=== PATIENT | female | born 1995 | race Caucasian/White ===

== ENCOUNTER → 2017-07-03 | Outpatient (CLI) | payer OTHER ==
[~2017-07-03] MED LIST: GADAVIST IV PRN
--- NOTE | 2017-07-03 08:08 | DIAGNOSTIC IMAGING REPORT ---
MRI OF THE BRAIN COMBO CLINICAL HISTORY: Headache. Weakness. Blurred vision. COMPARISON STUDY: No priors. TECHNIQUE: MRI of the brain was performed utilizing various T1 and T2-weighted sequences in the axial, sagittal, and coronal planes. Contrast-enhanced sequences were acquired following the administration of 5.5 cc of Gadavist. FINDINGS: Brain parenchyma: The brain parenchyma is normal in appearance. There is no hemorrhage or mass effect. There is no restricted diffusion to suggest acute ischemia. No enhancing mass lesion is identified on the postcontrast images. Valle-white matter differentiation is preserved. No extra-axial fluid collection is seen. The cerebellar tonsils are normal in configuration. Ventricles, sulci, and cisterns: Normal in configuration. Pituitary and sella: Unremarkable. Intracranial vasculature: Normal flow voids are maintained at the skull base. Orbits: The bony orbits are grossly intact. Orbital contents are normal in appearance. Sinuses and mastoids: Trace mucosal thickening is seen in the maxillary antra, the right sphenoid sinus, and ethmoid sinuses. The mastoid air cells are clear. Calvarium: Unremarkable. Cervical cord: Partially visualized cervical spinal cord is normal in morphology and signal intensity. IMPRESSION: No acute intracranial abnormality. Electronically signed by: Milind Turcios M.D. 07/03/2017 8:07 AM Dictated Date/Time: 07/03/2017 8:04 AM
--- NOTE | 2017-07-03 08:13 | DIAGNOSTIC IMAGING REPORT ---
CERVICAL SPINE COMBO HISTORY: 22 years-old Female HEADACH acute headache with blurred vision and confusion COMPARISON: MRI brain of same day TECHNIQUE: Multiplanar multisequence MRI of the cervical spine was obtained both with and without the use of 5.5 mL Gadavist FINDINGS: Large [id number] mortician investigator localizer images demonstrate no gross abnormality of the head, neck or imaged upper chest. Signal within the cord is within normal limits. Imaged posterior fossa is unremarkable. No acute fracture, subluxation or focal bone marrow edema. Imaged soft tissues are unremarkable. There is no abnormal enhancement. C2-C3: No central canal or foraminal narrowing. C3-C4: No central canal or foraminal narrowing. C4-C5: No central canal or foraminal narrowing. C5-C6: No central canal or foraminal narrowing. C6-C7: Broad-based disc bulge is noted in addition to a central disc protrusion which measures 0.2 x 0.5 cm in AP and transverse dimension flattening of ventral thecal sac. Central canal and foramen demonstrate no significant narrowing. C7-T1: No central canal or foraminal narrowing. Imaged upper cervical levels are unremarkable. IMPRESSION: 1. Broad-based disc bulge with central disc protrusion at C6-C7 flattens the ventral thecal sac without significant central canal or foraminal narrowing. 2. No additional discogenic degenerative changes identified. No focal bone marrow edema. 3. No abnormal enhancement. The above report was generated using voice recognition software. It may contain grammatical, syntax or spelling errors. Electronically signed by: Dani Joseph M.D. 07/03/2017 8:12 AM Dictated Date/Time: 07/03/2017 8:05 AM
--- NOTE | 2017-07-03 09:08 | DIAGNOSTIC IMAGING REPORT ---
SOFT TISS HEAD/NECK-THYROID CLINICAL HISTORY: 22 years-old Female presenting with CERVICAL LYMPHADENOPATHY, headache, blurred vision, confusion. TECHNIQUE: Real-time grayscale and color Doppler ultrasound imaging of the neck was performed. COMPARISON: None. FINDINGS: Prominent ovoid lymph node in the right cervical region maintaining a normal fatty hilum. This node measures 2.5 x 2.0 x 1.0 cm. Additional similar-appearing but smaller lymph nodes also noted. Similarly, a prominent ovoid lymph node in the left cervical region imaging and normal fatty hilum noted. This node measures 2.0 x 1.8 x 0.8 cm. IMPRESSION: Prominent but benign-appearing cervical lymph nodes bilaterally, which are likely reactive. If there is clinical concern, follow-up ultrasound could be obtained in one month to ensure resolution. Electronically signed by: Naun Marcelo M.D. 07/03/2017 9:07 AM Dictated Date/Time: 07/03/2017 9:05 AM
== END | disposition home or self-care (01) ==
LOC: C.MRI 05:59
PROVIDERS: ATTEND Student in an Organized Health Care Education/Training Program
DX: R51 Headache (principal); G81.90 Hemiplegia, unspecified affecting unspecified side; R20.2 Paresthesia of skin; R41.0 Disorientation, unspecified; H53.8 Other visual disturbances; R59.0 Localized enlarged lymph nodes; M50.20 Other cervical disc displacement, unspecified cervical region

== ENCOUNTER → 2017-10-27 | Outpatient (CLI) | payer OTHER | END | disposition home or self-care (01) | LOC: C.LAB 02:01 | DX: Z02.83 Encounter for blood-alcohol and blood-drug test (principal) ==

== ENCOUNTER 2020-03-04 12:42 | Inpatient (IN) ==
[2020-03-04] MEDS ORDERED: LACTATED RINGER'S 1,000 ML IV PRN (13:29)
[2020-03-04] MEDS ORDERED: OXYTOCIN 30 UNITS/500 ML BAG IV PRN ×3 (13:29→19:21)
--- NOTE | 2020-03-04 13:36 | History & Physical Report ---
Date of Service March 04, 2020 Assessment & Plan (1) Supervision of normal intrauterine in primigravida: - tracing Cat II, moderate variability with accles - active labor - desires epidural - anticipates History of Present Illness Chief Complaint: Labor check Primary Care Provider: Mindi Hatfield MD The patient is a 24-year-old 1 para 0 with an EDC of 08 March by first trimester ultrasound who was admitted at 39+ weeks gestational age in active labor. The patient has been having prodromal contractions for the last several days. She was discharged yesterday afternoon for labor check and was 4 cm dilated. Patient states that approximately 0900 hrs. this morning her contractions increased in intensity. Patient denies rupture of membranes or vaginal bleeding. The patient has had an benign course. Her blood type is O-, antibody negative, she received RhoGam on 15 December, hep B negative, rubella immune, negative SMA and cystic fibrosis screening, negative cell free DNA screening, normal 1 hour Glucola at 16 weeks, elevated at 28 weeks with a normal 2-hour glucose tolerance test, and a negative third trimester beta strep culture. Allergies Allergy/AdvReac Type Severity Reaction Status Date / Time prochlorperazine Allergy Intermediate Anxiety Verified 03/02/20 13:41 [From Compazine] Sulfa (Sulfonamide Allergy Mild HIVES Verified 03/02/20 13:41 Antibiotics) sulfamethoxazole Allergy Unknown Verified 03/02/20 13:41 [From Bactrim] trimethoprim [From Bactrim] Allergy Unknown Verified 03/02/20 13:41 YELLOW NO 5 Allergy Intermediate HIVES Uncoded 03/02/20 13:41 Home Medications Home Medications Medication Instructions Recorded Confirmed Type prenat.vits,brian,[id number] 1 tab PO DAILY 07/23/19 03/04/20 History Patient History Medical History (Updated 02/20/20 @ 10:48 by Blu Plaza Jr, MD, FACOG) Abnormal menses (Resolved) Acne (Acute) Acute sinus infection (Resolved) Anxiety (Acute) Chronic constipation (Acute) Chronic reflux esophagitis (Acute) Constipation (Resolved) Encounter for pre-employment examination (Inactive) History of headache Hx of varicella Menorrhagia (Resolved) Polycystic ovarian syndrome Postnasal drip (Acute) Xerosis cutis Surgical History History of cholecystectomy (Resolved) S/P cholecystectomy S/P excision of lipoma S/P wisdom tooth extraction Social History Preferred Language: German Communication Ability: Effective Customer Service Administrator Required: No Beliefs That Will Affect Care: None marital status: Single marital status details: FOB: Alexys Kam (44) [phone] Current Living Situation: Significant Other Current Living Situation Comment: Pt lives with boyfriend and dog. 2 stepchildren visit the home. current occupational status: employed current occupation: landscaping- laid off Other Information That Helps Us Care for You: No Feels Safe at Home: Yes Safety Concerns: Feels Safe At This Time Smoking Status: Former smoker Smoking End Date: 05/2019 ; Second Hand Exposure: No ; Tobacco Cessation Education Requested by Patient: No Hx Alcohol Use: No Hx Substance Use: No Childhood Exposure to Second-Hand Smoke: Yes Dental Care, Regularly: Yes Physical Activity Frequency: 5-6 Times per Week Physical Exam Constitutional: WD/WN, vitals as above Respiratory: Auscultation: lungs clear to auscultation bilaterally Cardiovascular: RRR, no murmur, no edema Extremities: no calf tenderness Gastrointestinal (Abdomen): Gravid, Vtx, (+) FHT's, EFW 7 1/2 lbs Genitourinary: Cervix: 6/100/(+)1 Results & Data ([facility]) Vital Signs (Past 12 Hours) Vital Signs Temp Pulse Resp BP 03/04/20 13:07 98.1 F 75 20 127/79 03/04/20 13:01 75 127/79 03/04/20 12:59 98.1 F 20 Coding Level of Care Code None Diagnoses Supervision of normal intrauterine in primigravida Z34.00
[2020-03-04 13:50] LABS: Hematocrit (blood only) 40.8 % (37-47); Hemoglobin 13.8 g/dL (12.0-16.0); Mean Corpuscular Hemoglobin 29.5 pg (25-34); Mean Corpuscular Volume 87.2 fL (80-100); Platelet Count 270 K/uL (130-400); RDW Coefficient of Variation 14.2 % (11.5-14.5); RDW Standard Deviation 44.7 fL (36.4-46.3); Red Blood Count 4.68 M/uL (4.2-5.4)
[2020-03-04 13:55] LABS: Mean Corpuscular Hgb Conc 33.8 g/dL (32-36)
[2020-03-04] MEDS ORDERED: ePHEDrine sulfate 50 MG/ML AMP ONE (14:07)
[2020-03-04] MEDS ORDERED: fentaNYL citrate 100 MCG/2 ML VIAL ONE (14:07)
[2020-03-04] MEDS ORDERED: BUPIVACAINE 0.25% 30 ML VIAL ONE (14:07)
[2020-03-04] MEDS ORDERED: fentaNYL 2MCG/ML ROPIV 1.25MG/ML 100 ML BAG EPI ONE (14:08)
--- NOTE | 2020-03-04 14:36 | Anesthesiology Consultation ---
Date of Service March 04, 2020 Assessment & Plan Chart Review Chart Review: Acceptable Risk for Labor Epidural Consults Requested none History Height/Weight Height: 5 ft 5 in Weight: 82.554 kg Allergies Allergy/AdvReac Type Severity Reaction Status Date / Time prochlorperazine Allergy Intermediate Anxiety Verified 03/02/20 13:41 [From Compazine] Sulfa (Sulfonamide Allergy Mild HIVES Verified 03/02/20 13:41 Antibiotics) sulfamethoxazole Allergy Unknown Verified 03/02/20 13:41 [From Bactrim] trimethoprim [From Bactrim] Allergy Unknown Verified 03/02/20 13:41 YELLOW NO 5 Allergy Intermediate HIVES Uncoded 03/02/20 13:41 Medications Home Medications Medication Instructions Recorded Confirmed Last Taken prenat.vits,brian,[id number] 1 tab PO DAILY 07/23/19 03/04/20 03/03/20 22:00 Past Medical History Medical History Abnormal menses (Resolved) Acne (Acute) Acute sinus infection (Resolved) Anxiety (Acute) Chronic constipation (Acute) Chronic reflux esophagitis (Acute) Constipation (Resolved) Encounter for pre-employment examination (Inactive) History of headache Hx of varicella Menorrhagia (Resolved) Polycystic ovarian syndrome Postnasal drip (Acute) Xerosis cutis Past Family History Family History Father Hypercholesterolemia Mother Thyroid disorder Diabetes Denies family history of Ovarian cancer Breast cancer Colorectal cancer Past Surgical History Surgical History History of cholecystectomy (Resolved) S/P cholecystectomy S/P excision of lipoma S/P wisdom tooth extraction Social History Smoking Status: Former smoker Smoking End Date: 05/2019 Hx Alcohol Use: No Hx Substance Use: No substance use type: does not use Physical Exam Vital Signs Last Vital Signs Temp 36.7 C 03/04/20 13:07 Pulse 103 H 03/04/20 14:34 Resp 20 03/04/20 13:07 BP 104/59 L 03/04/20 14:34 Pulse Ox 95 03/04/20 14:34 Testing Laboratory Results 03/04/20 13:38
[2020-03-04] MEDS ORDERED: ePHEDrine sulfate 50 MG/ML AMP IV PRN (14:39)
[2020-03-04] MEDS ORDERED: NALOXONE HCL 1 MG in SODIUM CHLORIDE 0.9% 1000ML 1,000 ML IV PRN (14:39)
[2020-03-04] MEDS ORDERED: NALOXONE HCL 0.4 MG/1 ML VIAL/CARP IV PRN (14:39)
[2020-03-04] MEDS ORDERED: fentaNYL 2MCG/ML ROPIV 1.25MG/ML 100 ML BAG EPI PRN (14:39)
[2020-03-04] MEDS ORDERED: DiphenhydrAMINE HCL 50 MG/ML VIAL IV PRN (14:39)
--- NOTE | 2020-03-04 14:39 | Anesthesiology Consultation ---
Date of Service March 04, 2020 History Height/Weight Height: 5 ft 5 in Weight: 82.554 kg Allergies Allergy/AdvReac Type Severity Reaction Status Date / Time prochlorperazine Allergy Intermediate Anxiety Verified 03/02/20 13:41 [From Compazine] Sulfa (Sulfonamide Allergy Mild HIVES Verified 03/02/20 13:41 Antibiotics) sulfamethoxazole Allergy Unknown Verified 03/02/20 13:41 [From Bactrim] trimethoprim [From Bactrim] Allergy Unknown Verified 03/02/20 13:41 YELLOW NO 5 Allergy Intermediate HIVES Uncoded 03/02/20 13:41 Medications Home Medications Medication Instructions Recorded Confirmed Last Taken prenat.vits,brian,[id number] 1 tab PO DAILY 07/23/19 03/04/20 03/03/20 22:00 Past Medical History Medical History Abnormal menses (Resolved) Acne (Acute) Acute sinus infection (Resolved) Anxiety (Acute) Chronic constipation (Acute) Chronic reflux esophagitis (Acute) Constipation (Resolved) Encounter for pre-employment examination (Inactive) History of headache Hx of varicella Menorrhagia (Resolved) Polycystic ovarian syndrome Postnasal drip (Acute) Xerosis cutis Past Family History Family History Father Hypercholesterolemia Mother Thyroid disorder Diabetes Denies family history of Ovarian cancer Breast cancer Colorectal cancer Past Surgical History Surgical History History of cholecystectomy (Resolved) S/P cholecystectomy S/P excision of lipoma S/P wisdom tooth extraction Social History Smoking Status: Former smoker Smoking End Date: 05/2019 Hx Alcohol Use: No Hx Substance Use: No substance use type: does not use Physical Exam Vital Signs Last Vital Signs Temp 36.7 C 03/04/20 13:07 Pulse 91 H 03/04/20 14:36 Resp 20 03/04/20 13:07 BP 103/57 L 03/04/20 14:36 Pulse Ox 95 03/04/20 14:34 Testing Laboratory Results 03/04/20 13:38
--- NOTE | 2020-03-04 15:14 | Labor Progress Brief Note ---
Date of Service March 04, 2020 Subjective Reason For Note: Routine Evaluation Assessment & Plan (1) Supervision of normal intrauterine in primigravida: - tracing Cat II, variability and accels - comfortable with epidural - ctx's spaced out after epidural - pitocin augmentation Admission and Anticipated Discharge Date Admission Date: March 04, 2020 Physical Exam Genitourinary: Cervix: 6/100/(+)1, AROM clear Results & Data ([facility]) Vital Signs (Past 12 Hours) Vital Signs Temp Pulse Resp BP Pulse Ox 03/04/20 15:09 59 L 97 03/04/20 15:07 80 93/57 L 03/04/20 15:04 90 92 03/04/20 14:59 95 H 99 03/04/20 14:54 98 H 96 03/04/20 14:50 84 94 03/04/20 14:49 91 H 95 03/04/20 14:48 85 98/55 L 03/04/20 14:46 96 H 102/57 L 03/04/20 14:44 90 100/57 L 93 03/04/20 14:42 101 H 99/57 L 03/04/20 14:40 96 H 100/57 L 03/04/20 14:39 91 H 94 03/04/20 14:38 101 H 98/57 L 03/04/20 14:36 91 H 103/57 L 03/04/20 14:34 103 H 104/59 L 95 03/04/20 14:32 85 108/58 L 03/04/20 14:30 98 H 114/57 L 03/04/20 14:29 91 H 96 03/04/20 14:27 81 125/68 03/04/20 14:26 87 93 03/04/20 14:24 81 98 03/04/20 14:21 95 H 93 03/04/20 14:19 103 H 99 03/04/20 14:15 88 90 03/04/20 14:14 72 136/76 97 03/04/20 13:07 98.1 F 75 20 127/79 03/04/20 13:01 75 127/79 03/04/20 12:59 98.1 F 20 Coding Level of Care Code None Diagnoses Supervision of normal intrauterine in primigravida Z34.00
--- NOTE | 2020-03-04 18:19 | Labor Progress Brief Note ---
Date of Service March 04, 2020 Subjective Reason For Note: Routine Evaluation Assessment & Plan (1) Supervision of normal intrauterine in primigravida: - tracing Cat II, moderate accels and variability - begin 2nd stage Admission and Anticipated Discharge Date Admission Date: March 04, 2020 Physical Exam Genitourinary: Cervix: Complete: (+)2 Results & Data ([facility]) Vital Signs (Past 12 Hours) Vital Signs Temp Pulse Resp BP Pulse Ox 03/04/20 18:14 120 H 100 03/04/20 18:09 89 100 03/04/20 18:04 86 100 03/04/20 18:00 98 H 89 L 03/04/20 17:59 88 100 03/04/20 17:54 89 100 03/04/20 17:50 89 108/63 03/04/20 17:49 92 H 97 03/04/20 17:44 85 100 03/04/20 17:39 83 99 03/04/20 17:35 82 100/56 L 03/04/20 17:34 81 96 03/04/20 17:31 92 H 94 03/04/20 17:29 81 20 95 03/04/20 17:26 85 94 03/04/20 17:24 84 95 03/04/20 17:20 86 102/52 L 03/04/20 17:19 86 93 03/04/20 17:14 91 H 98 03/04/20 17:09 73 97 03/04/20 17:04 80 96/55 L 97 03/04/20 17:03 87 94 03/04/20 17:01 98.4 F 03/04/20 16:59 75 20 98 03/04/20 16:58 74 93 03/04/20 16:54 74 97 03/04/20 16:50 80 95/54 L 92 03/04/20 16:49 77 97 03/04/20 16:44 82 98 03/04/20 16:39 80 98 03/04/20 16:34 80 101/58 L 98 03/04/20 16:30 91 H 90 03/04/20 16:29 75 20 98 03/04/20 16:24 82 91 03/04/20 16:19 76 101/56 L 99 03/04/20 16:14 71 100 03/04/20 16:13 71 94 03/04/20 16:09 79 97 03/04/20 16:05 84 98/65 L 88 L 03/04/20 16:04 79 98 03/04/20 15:59 79 20 99 03/04/20 15:58 88 92 03/04/20 15:54 74 100 03/04/20 15:49 72 106/65 96 03/04/20 15:44 69 99 03/04/20 15:40 77 93 03/04/20 15:39 74 96 03/04/20 15:34 68 100/58 L 99 03/04/20 15:29 98.2 F 69 20 98 03/04/20 15:24 76 99 03/04/20 15:19 79 103/60 100 03/04/20 15:17 73 93 03/04/20 15:14 72 94 03/04/20 15:12 70 94 03/04/20 15:09 59 L 97 03/04/20 15:07 80 93/57 L 03/04/20 15:04 90 92 03/04/20 14:59 95 H 99 03/04/20 14:54 98 H 96 03/04/20 14:50 84 94 03/04/20 14:49 91 H 95 03/04/20 14:48 85 98/55 L 03/04/20 14:46 96 H 102/57 L 03/04/20 14:44 90 100/57 L 93 03/04/20 14:42 101 H 99/57 L 03/04/20 14:40 96 H 100/57 L 03/04/20 14:39 91 H 94 03/04/20 14:38 101 H 98/57 L 03/04/20 14:36 91 H 103/57 L 03/04/20 14:34 103 H 104/59 L 95 03/04/20 14:32 85 108/58 L 03/04/20 14:30 98 H 114/57 L 03/04/20 14:29 91 H 96 03/04/20 14:27 81 125/68 03/04/20 14:26 87 93 03/04/20 14:24 81 98 03/04/20 14:21 95 H 93 03/04/20 14:19 103 H 99 03/04/20 14:15 88 90 03/04/20 14:14 72 136/76 97 03/04/20 13:07 98.1 F 75 20 127/79 03/04/20 13:01 75 127/79 03/04/20 12:59 98.1 F 20 Coding Level of Care Code None Diagnoses Supervision of normal intrauterine in primigravida Z34.00
--- NOTE | 2020-03-04 19:08 | Delivery Summary ---
Vaginal Delivery Summary Date of Service March 04, 2020 Vaginal Delivery Summary Findings: Viable male infant with Apgars of 9 and 9. Baby delivered over a midline episiotomy. Cord gases cord blood samples obtained. Placenta delivered spontaneously. Episiotomy repaired with 4-0 and 2-0 Vicryl in a routine fashion. Estimated blood loss 300 cc. Labor note: The patient is a 24-year-old 1 para 0 with an EDC of 08 March by first trimester ultrasound who was admitted at 39+ weeks gestational age in active labor. The patient has been having prodromal contractions for the last several days. She was discharged yesterday afternoon for labor check and was 4 cm dilated. Patient states that approximately 0900 hrs. this morning her contractions increased in intensity. Patient denies rupture of membranes or vaginal bleeding. The patient has had an benign course. Her blood type is O-, antibody negative, she received RhoGam on 15 December, hep B negative, rubella immune, negative SMA and cystic fibrosis screening, negative cell free DNA screening, normal 1 hour Glucola at 16 weeks, elevated at 28 weeks with a normal 2-hour glucose tolerance test, and a negative third trimester beta strep culture. Upon admission the patient was 6 cm dilated 1/2% effaced with bulging membranes. Tracing was category 2 with variability and accelerations. Patient was uncomfortable anesthesia was consulted and an epidural was placed. COVID-19 screening could not be performed secondary to administrative policy. Patient did not have any symptoms consistent with COVID. Following the epidural the patient had had no cervical change. She had artificial rupture membranes for clear fluid and Pitocin augmentation was initiated. Over the next several hours patient progressed to full dilatation and began her second stage. She pushed for approximately 20 minutes delivering the viable male . Cord was clamped and cut. Cord gases and cord blood samples were obtained. Placenta was delivered spontaneously. Midline episiotomy was repaired with 4-0 and 2-0 Vicryl. Estimated blood loss 300 cc. Sponge and needle count was correct. [facility] Vaginal Delivery Charge Vaginal Delivery Codes: 62803 global code for the antepartum, delivery, and post-
[2020-03-04] MEDS ORDERED: ACETAMINOPHEN 325 MG TAB PO PRN (19:21)
[2020-03-04] MEDS ORDERED: DIPHTHERIA/TETANUS/PERTUSSIS 0.5 ML SYR/VIAL IM ONE (19:21)
[2020-03-04] MEDS ORDERED: ACETAMINOPHEN W/CODEINE #3 1 TAB PO PRN (19:21)
[2020-03-04] MEDS ORDERED: HYDROCORTISONE ACETATE 25 MG SUPP PR PRN (19:21)
[2020-03-04] MEDS ORDERED: SUPERCREAM 0.870% 15 GM JAR EXT PRN (19:21)
[2020-03-04 19:30] LABS: Base Excess Cord Venous Blood -5.7 mEq/L (-7.7-1.9); Cord Venous Blood HCO3 20 mmol/L (18.4-26.8); Cord Venous Blood PCO2 40 mmHg (30.4-57.2); Cord Venous Blood PO2 29 mmHg (14.1-43.3); Cord Venous Blood pH 7.32 (7.20-7.44)
[2020-03-04 19:40] LABS: Base Excess Cord Arterial Bld -9.1 mEq/L (-9-1.8); CO2 Cord Arterial Blood 53 mmHg (39.1-73.5); HCO3 Cord Arterial Blood 20 mmol/L (19.7-28.5); PO2 Cord Arterial Blood 41 mmHg (4.1-31.7); pH Cord Arterial Blood 7.19 (7.1-7.38)
[2020-03-04] MEDS: BENZOCAINE 20% AER SPR 82.5 GM CAN EXT PRN (20:10)
[2020-03-04] MEDS: IBUPROFEN 600 MG TAB PO PRN (20:10)
[2020-03-04] MEDS: DOCUSATE SODIUM 100 MG CAP PO SCH (20:10)
--- NOTE | 2020-03-04 22:01 | Anesthesia Procedure Note ---
Date of Service March 04, 2020 Anesthesia Post Epidural Note Vital Signs Vital Signs: Temp Pulse Resp BP Pulse Ox 36.4 C L 116 H 18 127/70 100 03/04/20 19:13 03/04/20 21:01 03/04/20 21:01 03/04/20 21:01 03/04/20 18:45 Pain Intensity Bilateral Episiotomy/Laceration: Pain Intensity: 3 Notes Mental Status: alert / awake / arousable Nausea / Vomiting: adequately controlled Pain: adequately controlled Airway Patency, RR, SpO2: stable & adequate BP & HR: stable & adequate Hydration State: stable & adequate Neuraxial Anesthesia: was administered and sensory block is resolving Anesthetic Complications: no major complications apparent and Pt Satisfied with anesthetic care Epidural: Removed without complications and With tip intact
[2020-03-05] MEDS: IBUPROFEN 600 MG TAB PO PRN ×5 (03:38→23:39)
--- NOTE | 2020-03-05 07:09 | Obstetrical Progress Note ---
Date of Service March 05, 2020 Assessment & Plan (1) Supervision of normal intrauterine in primigravida: - routine care - doing well Subjective Ambulation: ambulating normally Voiding: no voiding problems Physical Exam Constitutional WD/WN, vitals as above Gastrointestinal (Abdomen) Fundus firm below umbilicus Musculoskeletal No deep calf tenderness Results & Data ([facility]) Vital Signs (Past 12 Hours) Vital Signs Temp Pulse Pulse Resp BP BP 03/05/20 03:35 99.5 F 84 18 117/69 03/04/20 23:00 98.4 F 96 H 18 112/71 03/04/20 21:01 116 H 18 127/70 03/04/20 20:47 112 H 136/92 03/04/20 20:31 112 H 18 127/70 03/04/20 20:02 112 H 20 156/81 H 03/04/20 19:46 101 H 18 147/60 H 03/04/20 19:30 100 H 18 148/75 H 03/04/20 19:13 97.5 F L 179 H 18 129/80
[2020-03-05] MEDS: DOCUSATE SODIUM 100 MG CAP PO SCH ×2 (08:52→20:58)
[2020-03-05] MEDS: FERROUS SULFATE 325 MG TAB PO SCH (08:52)
[2020-03-05] MEDS: PRENATAL VITAMIN 1 TAB PO SCH (08:53)
[2020-03-05] MEDS ORDERED: bisacodyL 5 MG TABEC PO SCH (20:00)
[2020-03-06 05:41] LABS: Hematocrit (blood only) 36.9 % (37-47)
[2020-03-06] MEDS: BENZOCAINE 20% AER SPR 82.5 GM CAN EXT PRN ×2 (06:32→14:39)
--- NOTE | 2020-03-06 07:48 | Obstetrical Progress Note ---
Date of Service March 06, 2020 Assessment & Plan (1) Supervision of normal intrauterine in primigravida: meets criteria, home Subjective Ambulation: ambulating normally Diet Tolerance:: regular diet Lochia:: Small Feeding Type:: breast feeding Current Pain Level(1-10): 0 Physical Exam Constitutional WD/WN, vitals as above ext neg Results & Data ([facility]) Vital Signs (Past 12 Hours) Vital Signs Temp Pulse Resp BP 03/05/20 23:10 98.1 F 89 18 115/72
[2020-03-06] MEDS: FERROUS SULFATE 325 MG TAB PO SCH (08:08)
[2020-03-06] MEDS: PRENATAL VITAMIN 1 TAB PO SCH (08:08)
[2020-03-06] MEDS: DOCUSATE SODIUM 100 MG CAP PO SCH (08:08)
[2020-03-06] MEDS: IBUPROFEN 600 MG TAB PO PRN ×2 (08:09→12:26)
== END 2020-03-06 15:30 | disposition home or self-care (01) | DRG 807 ==
LOC: OPB 12:42 → 4S1 12:44 → 4S2 22:12
DX: Z3A.39 39 weeks gestation of pregnancy; O80 Encounter for full-term uncomplicated delivery; Z37.0 Single live birth